=== PATIENT | female | born 1960 | race Asian ===

== ENCOUNTER 2023-07-02 19:21 | Observation (INO) | payer SELFPAY ==
[2023-07-02 19:40] LABS: HEMATOCRIT 31.6 % (37.0-47.0); MEAN CORPUSCULAR HEMOGLOBIN 30.6 pg (28.0-32.0); MEAN CORPUSCULAR HGB CONC 34.8 g/dL (32.0-36.0); MEAN CORPUSCULAR VOLUME 87.8 fL (83.0-99.0); MEAN PLATELET VOLUME 10.8 fL (9.4-12.3); PLATELET COUNT,PLT 152 K/uL (150-400); WHITE BLOOD CELL COUNT,WBC 10.82 K/uL (3.9-11.3)
[2023-07-02] MEDS ORDERED: Ondansetron 4 MG/2 ML SDV IVPUSH ONE (20:06)
[2023-07-02] MEDS ORDERED: Aspirin 81 MG Tab.Chew PO ONE (20:06)
[2023-07-02] MEDS ORDERED: Magnesium Sulfate/Water 2 GM in Premix Bag 1 BAG IV ONE (20:20)
[2023-07-02 20:26] LABS: A/G RATIO 0.9 (0.9-1.6); ALBUMIN 3.9 g/dL (3.4-5.0); BILIRUBIN TOTAL 0.5 mg/dL (0.2-1.0); CALCIUM 9.1 mg/dL (8.5-10.1); CARBON DIOXIDE,CO2 25.2 mmol/L (21.0-32.0); CREATININE 2.2 mg/dL (0.6-1.0); EST CRCL DRUG DOSING (CG) 19.24 mL/min; POTASSIUM,K 3.5 mmol/L (3.5-5.1); PROTEIN TOTAL,TP 8.4 g/dL (6.4-8.2); TSH ULTRASENSITIVE 2.91 uIU/mL (0.36-3.74)
[2023-07-02 20:56] LABS: BILIRUBIN,URINE NEGATIVE (NEGATIVE); COLOR,URINE YELLOW; GLUCOSE,URINE NEGATIVE (NEGATIVE); KETONES,URINE NEGATIVE (NEGATIVE); LEUKOCYTE ESTERASE,URINE TRACE (NEGATIVE); NITRITE,URINE NEGATIVE (NEGATIVE); OCCULT BLOOD,URINE SMALL (NEGATIVE); PROTEIN,URINE TRACE mg/dL (NEGATIVE); UROBILINOGEN,URINE 0.2 EU/dL (<2.0)
[2023-07-02 21:08] LABS: BAND ABSOLUTE MAN 0.1; BAND PERCENT MAN 1 %; SEG NEUTROPHILS ABSOLUTE MAN 3.4 (1.4-5.7); SEG NEUTROPHILS PERCENT MAN 31 % (48.0-80.0)
[2023-07-02 21:09] LABS: EOSINOPHILS ABSOLUTE MAN 2.1 (0.0-0.7); EOSINOPHILS PERCENT MAN 19 % (0.0-7.0); LYMPHOCYTES ABSOLUTE MAN 4.7 (0.6-2.4); LYMPHOCYTES PERCENT MAN 43 % (16.0-40.0); MONOCYTES ABSOLUTE MAN 0.6 (0.0-0.8); MONOCYTES PERCENT MAN 6 % (0.0-15.0)
[2023-07-02 21:11] LABS: APPEARANCE,URINE HAZY
[2023-07-02 21:27] LABS: BACTERIA,URINE FEW (NEGATIVE); EPITHELIAL CELLS,URINE FEW (NONE-FEW); MUCUS,URINE LIGHT (NONE-MOD)
[2023-07-02] MEDS ORDERED: Lactated Ringers 1,000 ML IV SCH (21:30)
[2023-07-03] MEDS ORDERED: 50% Dextrose in Water 50 ML Syringe IVPUSH PRN ×2 (01:16→12:17)
[2023-07-03] MEDS ORDERED: Glucagon,Human Recombinant 1 MG Vial IM PRN ×2 (01:16→12:17)
[2023-07-03] MEDS ORDERED: Acetaminophen 325 MG Tab PO PRN (01:17)
[2023-07-03] MEDS: Lactated Ringers 1,000 ML IV SCH ×2 (02:56→18:23)
[2023-07-03] MEDS: Insulin Aspart 100 Units/ML 3 ML Pen SUBCUT SCH ×3 (07:30→18:17)
[2023-07-03 10:48] LABS: HEMATOCRIT 30.7 % (37.0-47.0); HEMOGLOBIN 10.6 g/dL (12.0-16.0); MEAN CORPUSCULAR HEMOGLOBIN 30.1 pg (28.0-32.0); MEAN CORPUSCULAR HGB CONC 34.5 g/dL (32.0-36.0); MEAN CORPUSCULAR VOLUME 87.2 fL (83.0-99.0); MEAN PLATELET VOLUME 10.8 fL (9.4-12.3); PLATELET COUNT,PLT 138 K/uL (150-400); RED BLOOD CELL COUNT 3.52 M/uL (4.10-5.30); WHITE BLOOD CELL COUNT,WBC 7.69 K/uL (3.9-11.3)
[2023-07-03 11:10] LABS: CALCIUM 9.2 mg/dL (8.5-10.1); CARBON DIOXIDE,CO2 24.4 mmol/L (21.0-32.0); CREATININE 1.8 mg/dL (0.6-1.0); EST CRCL DRUG DOSING (CG) 23.51 mL/min; POTASSIUM,K 3.9 mmol/L (3.5-5.1)
[2023-07-03 11:20] LABS: BAND ABSOLUTE MAN 0.1; BAND PERCENT MAN 1 %; LYMPHOCYTES ABSOLUTE MAN 1.7 (0.6-2.4); LYMPHOCYTES PERCENT MAN 22 % (16.0-40.0); MONOCYTES ABSOLUTE MAN 0.4 (0.0-0.8); MONOCYTES PERCENT MAN 5 % (0.0-15.0); SEG NEUTROPHILS ABSOLUTE MAN 3.8 (1.4-5.7); SEG NEUTROPHILS PERCENT MAN 49 % (48.0-80.0)
[2023-07-03 11:21] LABS: BASOPHILS ABSOLUTE MAN 0.2 (0.0-0.1); BASOPHILS PERCENT MAN 2 % (0.0-1.5); EOSINOPHILS ABSOLUTE MAN 1.6 (0.0-0.7); EOSINOPHILS PERCENT MAN 21 % (0.0-7.0)
[2023-07-03] MEDS: cefTRIAXone 1 GM in Sodium Chloride 0.9% 50 ML IV SCH (11:44)
[2023-07-03] MEDS ORDERED: Ondansetron 4 MG/2 ML SDV IVPUSH PRN (12:30)
[2023-07-03 13:17] LABS: HEMOGLOBIN A1C 6.4 %
[2023-07-03] MEDS: Enoxaparin 30 MG/0.3 ML Syringe SUBCUT SCH (13:36)
[2023-07-03 14:00] LABS: CALCIUM 8.8 mg/dL (8.5-10.1); CARBON DIOXIDE,CO2 23.4 mmol/L (21.0-32.0); CREATININE 1.8 mg/dL (0.6-1.0); EST CRCL DRUG DOSING (CG) 23.51 mL/min
[2023-07-03] MEDS ORDERED: Insulin Aspart 100 Units/ML 3 ML Pen SUBCUT SCH (17:00)
[2023-07-04 06:28] LABS: HEMOGLOBIN 10.2 g/dL (12.0-16.0); MEAN CORPUSCULAR HEMOGLOBIN 30.9 pg (28.0-32.0); MEAN CORPUSCULAR HGB CONC 35.2 g/dL (32.0-36.0); MEAN CORPUSCULAR VOLUME 87.9 fL (83.0-99.0); MEAN PLATELET VOLUME 10.9 fL (9.4-12.3); PLATELET COUNT,PLT 124 K/uL (150-400); WHITE BLOOD CELL COUNT,WBC 5.38 K/uL (3.9-11.3)
[2023-07-04 07:16] LABS: CALCIUM 8.7 mg/dL (8.5-10.1); CARBON DIOXIDE,CO2 25.2 mmol/L (21.0-32.0); CREATININE 1.6 mg/dL (0.6-1.0); EST CRCL DRUG DOSING (CG) 26.45 mL/min; POTASSIUM,K 4.3 mmol/L (3.5-5.1)
[2023-07-04 07:36] LABS: LYMPHOCYTES ABSOLUTE MAN 1.5 (0.6-2.4); LYMPHOCYTES PERCENT MAN 27 % (16.0-40.0); SEG NEUTROPHILS ABSOLUTE MAN 2.3 (1.4-5.7); SEG NEUTROPHILS PERCENT MAN 43 % (48.0-80.0)
[2023-07-04 07:37] LABS: EOSINOPHILS ABSOLUTE MAN 1.4 (0.0-0.7); EOSINOPHILS PERCENT MAN 26 % (0.0-7.0); MONOCYTES ABSOLUTE MAN 0.2 (0.0-0.8); MONOCYTES PERCENT MAN 4 % (0.0-15.0)
[2023-07-04] MEDS: Insulin Aspart 100 Units/ML 3 ML Pen SUBCUT SCH ×2 (07:53→11:00)
[2023-07-04] MEDS: Lactated Ringers 1,000 ML IV SCH (08:19)
[2023-07-04] MEDS ORDERED: Losartan 50 MG Tab PO SCH (09:00)
[2023-07-04] MEDS: cefTRIAXone 1 GM in Sodium Chloride 0.9% 50 ML IV SCH (10:44)
[2023-07-04] MEDS: Enoxaparin 30 MG/0.3 ML Syringe SUBCUT SCH (12:16)
== END 2023-07-04 13:20 | disposition home or self-care (01) ==
LOC: MW.ED 19:21 → MW.MS 23:58
PROVIDERS: ADMIT Family Medicine; ATTEND Family Medicine
DX: R55 Syncope and collapse (principal); R01.1 Cardiac murmur, unspecified; R79.1 Abnormal coagulation profile; N17.9 Acute kidney failure, unspecified; N39.0 Urinary tract infection, site not specified; E78.5 Hyperlipidemia, unspecified; I12.9 Hypertensive chronic kidney disease with stage 1 through stage 4 chronic kidney disease, or unspecified chronic kidney disease; E11.22 Type 2 diabetes mellitus with diabetic chronic kidney disease; N18.9 Chronic kidney disease, unspecified; I08.3 Combined rheumatic disorders of mitral, aortic and tricuspid valves; I42.9 Cardiomyopathy, unspecified; Z20.822 Contact with and (suspected) exposure to COVID-19; Z79.84 Long term (current) use of oral hypoglycemic drugs; Z79.899 Other long term (current) drug therapy
CPT/HCPCS: 36415; 71045; 80048; 80053; 80061; 81001; 82947; 83036; 83735; 83880; 84443; 84484; 85025; 85379; 87086; 87635; 93005; 93246; 93306; 96365; 96366; 96375; 99285; A9270; J0696; J1650; J2405; J3475; J3490; J7120; 93010; 96372; 96376; 99223; 99239; 99284; G0378; U0002